=== PATIENT | male | born 2000 | race Caucasian/White ===

== ENCOUNTER 2020-02-20 06:59 | Emergency (ER) | payer BC, SELFPAY ==
--- NOTE | ~2020-02-20 | XR_ITS ---
EXAMINATION: XR chest 2V DATE: 02/20/2020 08:33 INDICATION: Palpitations. TECHNIQUE: Frontal and lateral views of the chest were obtained. COMPARISON: None. FINDINGS: The chest demonstrates clear lungs without pneumonia, pleural effusion, or pneumothorax. Th e heart size is normal. IMPRESSION: 1. No acute cardiopulmonary disease. Reviewed, dictated and finalized at location A.
--- NOTE | 2020-02-20 07:10 | ED.ABDPAIN ---
HPI - Abdominal Pain General Chief Complaint: Arrhythmia/Palpitations Stated Complaint: anxiety, sob, palpitations??? Time Seen by Provider: 02/20/20 07:09 Source: patient and family Mode of arrival: ambulatory Limitations: no limitations History of Present Illness HPI narrative: Patient is a 19-year-old male who presents for evaluation of intermittent palpitations over the past 72 hours. Patient reportedly had felt some palpitations after running outside yesterday that lasted approximately 3 hours before resolving. Patient denied any chest pain, states that it felt difficult to take a deep breath, but currently denies any shortness of breath. No fever, cough, congestion, rhinorrhea or current shortness of breath. Patient states he has been very anxious especially with the end of the semester, final exams recently. Patient has a history of anxiety but does not take any medications for this. He states he gets similar palpitations from caffeine intake which he tries to be very careful about. Patient has had a previous episode of palpitations after high amount of caffeinated beverage intake approximately a week and a half ago, for which he spoke with his parents, but never sought care in the emergency department. Patient otherwise has not followed up with a primary care physician. Patient states that with his palpitations he usually experiences tingling in his hands. Related Data Home Medications Medication Instructions Recorded Confirmed No Home Medications 02/20/20 02/20/20 Allergies Allergy/AdvReac Type Severity Reaction Status Date / Time No Known Allergies Allergy Verified 02/20/20 07:21 Review of Systems Review of Systems: Narrative: CONSTITUTIONAL: Denies fever, chills, or sweats. EYES: Denies visual changes, redness, or discharge. ENT: Denies rhinorrhea, congestion, sore throat, or otalgia. CARDIOVASCULAR: Denies chest pain, reports intermittent palpitations, denies calf edema or calf pain RESPIRATORY: Denies cough or dyspnea. GASTROINTESTINAL: Denies abdominal pain, nausea, vomiting, or diarrhea. GENITOURINARY: Denies dysuria or hematuria. SKIN: Denies rash or itching. MUSCULOSKELETAL: Denies back pain, joint pain, or myalgia. NEUROLOGIC: Denies headache, numbness, or weakness. PSYCHIATRIC: Reports history of anxiety. [facility] Past Medical History Medical History (Updated 02/20/20 @ 10:01 by Marium Cao MD) Anxiety Tic disorder Surgical History Surgical History (Updated 02/20/20 @ 08:13 by Marium Cao MD) No pertinent past surgical history Social History Social History (Updated 02/20/20 @ 08:13 by Marium Cao MD) Smoking status: Never smoker Alcohol intake: never Substance use: never Living arrangements: alone Occupation/Education: student Gender identity (if verbalized by the patient): Male Exam Narrative: Exam Narrative: GENERAL: Awake, alert, conversant HEAD: Normocephalic, atraumatic. EYES: PERRLA and EOMI. ENT: Nares clear, no rhinorrhea or epistaxis. Mucous membranes moist. NECK: Supple. CHEST: No respiratory distress, breathing even and non labored HEART: Regular rate while in room talking with patient, sinus rhythm ABDOMEN:Non distended, non tender EXTREMITIES: Normal range of motion. No edema. SKIN: Warm, dry, no rash. NEURO:No focal deficits. Alert and oriented x3 Course Vital Signs Vital signs: Vital Signs Temperature 36.3 C L 02/20/20 07:13 Pulse Rate 53 L 02/20/20 07:13 Respiratory Rate 16 02/20/20 07:13 Blood Pressure 132/91 H 02/20/20 07:13 Pulse Oximetry 100 02/20/20 07:13 Temperature 36.3 C L 02/20/20 07:13 Pulse Rate 53 L 02/20/20 07:13 Respiratory Rate 16 02/20/20 07:13 Blood Pressure 132/91 H 02/20/20 07:13 Pulse Oximetry 100 02/20/20 07:13 MDM - Abdominal Pain MDM Narrative Medical decision making narrative: Patient presenting for evaluation of intermittent palpitations. At the time of assessment
[2020-02-20 07:13] VITALS: BP 132/91; PULSE 53; RESP 16; TEMP 36.3; O2SAT 100
--- NOTE | 2020-02-20 07:17 | ECG_ITS ---
Measurements Intervals [place] Rate: 64 P: 32 NH: 123 QRS: 7 QRSD: 93 T: 34 QT: 389 QTc: 403 Interpretive Statements SINUS RHYTHM WITH MARKED SINUS ARRHYTHMIA BASELINE ARTIFACT- I, III NORMAL ECG Electronically Signed On 02-20-2020 7:39:57 CDT by Slava Herrera D.O.
[2020-02-20 08:15] VITALS: BP 137/95; PULSE 61; RESP 12; O2SAT 100
[2020-02-20 08:54] LABS: Basophils Percent Auto 0.5 % (0.2-1.2); Eosinophils Absolute Auto 0.1 K/mm3 (0-0.3); Eosinophils Percent Auto 1.2 % (0-4.4); Hematocrit 44.2 % (42.0-52.0); Hemoglobin 15.6 g/dL (14.0-18.0); Immature Granulocyte Absolute 0.03 K/mm3 (0.00-0.031); Immature Granulocyte Percent A 0.4 % (0-0.5); Lymphocytes Absolute Auto 2.42 K/mm3 (0.9-3.2); Lymphocytes Percent Auto 32.8 % (18.3-44.2); Mean Corpuscular HGB Conc 35.3 g/dl (32-36); Mean Corpuscular Hemoglobin 30.9 pg (26-34); Mean Corpuscular Volume 87.5 fl (80-100); Monocytes Absolute Auto 0.8 K/mm3 (0.1-0.6); Monocytes Percent Auto 11.4 % (2.6-8.5); Neutrophils Percent Auto 53.7 % (45.5-73.1); Platelet Count Result 251 k/mm3 (150-375); Red Blood Count 5.05 M/mm3 (4.6-6.20); Red Cell Distribution Width 12.4 % (11.5-14.5); White Blood Count 7.4 K/mm3 (4.5-10.0)
[2020-02-20 09:00] VITALS: BP 142/89; PULSE 55; RESP 14; O2SAT 100
[2020-02-20 09:05] LABS: Blood Urea Nitrogen 10 mg/dL (9-20); Calcium 9.6 mg/dL (8.4-10.2); Carbon Dioxide 28 mmol/L (22-30); Chloride 100 mmol/L (98-107); Estimated CRCL calculation 119 ml/min; Estimated Glomerular Filt Rate > 60; Glucose 95 mg/dL (75-110); Potassium 4.1 mmol/L (3.4-5.0); Sodium 137 mmol/L (137-145)
[2020-02-20 09:17] LABS: Troponin I < 0.012 ng/mL (0.000-0.034)
[2020-02-20 10:00] VITALS: BP 138/82; PULSE 58; RESP 16; O2SAT 100
[2020-02-20 10:45] VITALS: BP 146/80; PULSE 64; RESP 16; O2SAT 100
--- NOTE | 2020-02-25 15:34 | P.PCNHOL_ITS ---
Holter/Event Monitor Holter/Event Monitor Date of procedure: 02/20/20 Procedure Type: 48 hour holter monitor Indications: Palpitations Conclusion: 1. 48 hour holter monitor on 02/20/20. 2. Underlying rhythm is sinus rhythm. HR range 35-160 bpm; average HR 66 bpm. 3. There are 3 premature supraventricular complexes. No supraventricular tachycardia. 4. There are 12 premature ventricular complexes. No ventricular tachycardia. 5. No sinoatrial or atrioventricular blocks. No significant pauses greater than 2 seconds. 6. Patient reports symptoms of palpitations, feet feels cold, sharp pain in ab domen which demonstrate sinus rhythm, HR range 62-91 bpm.
== END 2020-02-20 10:45 | disposition home or self-care (01) ==
PROVIDERS: Emergency Provider Emergency Medicine
DX: R00.2 Palpitations (principal); I49.3 Ventricular premature depolarization
CPT/HCPCS: 36415; 71046; 80048; 84484; 85025; 93005; 93225; 93226; 99284

== ENCOUNTER 2020-02-26 12:11 | Outpatient (CLI) | payer BC, SELFPAY ==
--- NOTE | 2020-02-26 12:26 | ECHO_ITS ---
Patient Info Name: Jalil Alvarado Age: 19 years : 2000 Gender: Male Ht: 67 in Wt: 150 lbs BSA: 1.80 m2 HR: 88 bpm BP: 122 / 68 mmHg Heart Rhythm: Sinus Rhythm Technical Quality: Excellent Exam Date: 02/26/2020 12:35 PM Exam Location: [facility] [place] Patient Status: Outpatient Admit Date: 02/26/2020 Staff Ordering Physician: Neal Heredia DO Developer Relations Manager: Linda Tavares RDCS Attending Provider: Neal Heredia DO Referring Physician: Giovanna GONZALEZ; Exam Type: CA echo doppler color flow Study Info Indications R00.2 - Palpitations Complete two-dimensional, color flow and Doppler transthoracic echocardiogram is performed. Strain analysis performed. History/Risk Factors Hypertension: No Dyslipidemia: No Congenital Heart Disease (CHD): No Peripheral Arterial Disease (PAD): No Myocardial Infarction (MO): No Chronic Lung Disease: No Obesity: No Renal Disease: No Coronary Artery Disease (CAD) No Congestive Heart Failure (CHF): No Cardiomyopathy/LV Systolic Dysfunction: No Diabetes Mellitus: No COPD: No Tobacco Use: Never Cerebrovascular Disease: No Family History: Diabetes Mellitus, Coronary Artery Disease Deep Vein Thrombosis (DVT): None Dialysis: None Frailty Scale (CSHA): 1: Very Fit Cardiac Arrest: No Prior Interventions Pacemaker: No PCI: No CABG: No Valve Surgery: No ICD: No PV Intervention: None Heart Transplant: No Summary 1. Left ventricular chamber dimension is normal. 2. Left ventricular systolic function is normal, estimated at 60-65%. 3. The left ventricular diastolic function is normal. 4. E/e' 8 is minimally elevated. 5. Global longitudinal strain is normal at -20.5%. 6. There is trace mitral valve regurgitation. Left Ventricle E/e' 8 is minimally elevated. Global longitudinal strain is normal at -20.5%. Left ventricular chamber dimension is normal. Left ventricular systolic function is normal, estimated at 60-65%. The left ventricular diastolic function is normal. Right Ventricle Right ventricular chamber dimension is normal. Right ventricular systolic function is normal. Left Atria Left atrial chamber dimension is normal. Right Atria Right atrial chamber dimension is normal. Aortic Valve The aortic valve is trileaflet. There is no aortic valve stenosis. There is no aortic valve regurgitation. Pulmonic Valve There is no pulmonic regurgitation. Mitral Valve There is no mitral valve stenosis. There is trace mitral valve regurgitation. Tricuspid Valve There is no tricuspid valve regurgitation. Pericardium/Pleural There is no pericardial effusion. Inferior Vena Cava Normal inferior vena cava with >50% collapse upon inspiration consistent with normal right atrial pressure, 5 mmHg. Aorta The aortic root size at the sinus of Valsalva is normal. Left Ventricular Outflow Tract Name Value Normal LVOT 2D LVOT Diameter 2.2 cm LVOT Doppler LVOT Peak Velocity 105 cm/s
== END 2020-02-26 12:12 | disposition home or self-care (01) ==
PROVIDERS: PCP Family Medicine; Visit Provider Family Medicine
DX: R00.2 Palpitations (principal)
CPT/HCPCS: 93306

== ENCOUNTER 2022-02-23 14:54 | Outpatient (CLI) | payer BC, SELFPAY ==
[2022-02-23 15:05] LABS: Hematocrit 45.8 % (40.0-54.0); Hemoglobin 16.3 g/dL (14.0-18.0); Mean Corpuscular HGB Conc 35.6 g/dL (32.0-36.0); Mean Corpuscular Hemoglobin 31.8 pg (27.0-31.0); Mean Corpuscular Volume 89.3 fL (78.0-102.0); Mean Platelet Volume 9.6 fl (8.7-11.0); Platelet Count Result 275 K/mm3 (150-420); Red Blood Count 5.13 M/mm3 (4.70-6.10); Red Cell Distribution Width 11.7 % (11.6-14.4); White Blood Count 6.8 K/mm3 (4.8-10.8)
[2022-02-23 15:33] LABS: Alanine Aminotransferase 47 U/L (16-63); Albumin Level 4.3 g/dL (3.4-5.0); Alkaline Phosphatase 39 U/L (46-116); Anion Gap 10 mmol/L (8-16); Aspartate Amino Transferase 24 U/L (15-37); Bilirubin,Total 0.6 mg/dL (0.00-1.00); Blood Urea Nitrogen 9 mg/dL (7-18); Calcium 9.5 mg/dL (8.5-10.1); Carbon Dioxide 28 mmol/L (21-32); Chloride 100 mmol/L (98-108); Estimated Glomerular Filt Rate > 60; Glucose 97 mg/dL (70-99); Osmolality Calculated 284 mOsm/kg (285-295); Potassium 4.2 mmol/L (3.5-5.1); Sodium 138 mmol/L (136-145); Total Protein 8.1 g/dL (6.4-8.2)
== END 2022-02-23 14:55 | disposition home or self-care (01) ==
LOC: CHSLAB 14:55
PROVIDERS: PCP Family Medicine; Visit Provider Family Medicine
DX: I10 Essential (primary) hypertension (principal)
CPT/HCPCS: 36415; 80053; 85027

== ENCOUNTER 2024-09-16 16:59 | Emergency (ER) | payer BC, SELFPAY ==
--- OUTSIDE RECORDS SUMMARY | 2024-09-16 17:01 | XMS_ITS | Clinical Summary ---
Author Organization [facility] Address [facility]. [place], [place] [id number] [place] [id number] Care Team Providers Care Roll Setter Name Role Phone Unavailable Primary Care Provider Unavailabl e Social History Tobacco Use Types Packs/Day Years Used Date Smoking Tobacco: Never Assessed Sex and Gender Information Value Date Recorded Sex Assigned at Not on file Legal Sex Male 5:47 PM SOFTWARE DEVELOPER CONSULTANT Gender Identity Not on file Sexual Orientation Not on file Plan of Treatment Health Maintenance Due Date Last Done Comments Annual Physical 2001 HPV Vaccines (1 - Male 3-dos e series) 2013 Hepatitis C 2016 DTaP, Tdap and Td Vaccines ( 1 - Tdap) 2017 Hepatitis B Vaccines (1 of 3 - 19+ 3-dose series) 2017 COVID-19 Vaccine ( - 2023-2 5 season) 2024 Influenza Adult (#1) 2024 Meningococcal B Vaccine Aged Out No l onger eligible based on patient's age to complete this topic Meningococcal Vaccine Aged Out No kassy alexsander eligible based on patient's age to complete this topic Pneumococcal Vaccine: Pediat rics (0 to 5 Years) and At-Risk Patients (6 to 64 Years) Aged Out No longer eligible b ased on patient's age to complete this topic RSV Immunizations Under 20 Months Aged Out No longer eligible based on patient's age to complete this topic
--- OUTSIDE RECORDS SUMMARY | 2024-09-16 17:01 | XMS_ITS | Referral Summary ---
Author Organization [facility] Address [address] [place] [address] Care Team Providers Care Religious Studies Professor Name Role Phone Unavailable Primary Care Provider Unavailabl e Source Comments [facility],non-owned Affiliates and Associated Physician Practices is amultiple site organization consisting of ambulatory clinics and hospital sitesin [place], [place], [place] and [place]. This disclosure is being madepursuant to the Care Everywhere program and may not contain all information available regarding this patient. Last updated 18.[facility] Allergies No known active allergies Medications Be aware that medications may not be up to date on this document. Always verify current medications with the patient. No known medications Active Problems No known active problems Immunizations Name Administration Dates Next Due DTAP HIB IPV 02/18/1999 DTaP VACCINE IM (6wk-6yrs) 01/27/2004,,06/22/1999,04/20/1999, 02/18/1999 HEP A PEDS 2 DOSE 07/05/2010,12/31/2009 HEP B VACCINE, PED/ADOL 09/22/1999,01/19/1999, HIB BOOSTER 06/26/2000,06/22/1999,04/20/1999 ,02/18/1999 MENINGOCOCCAL CONJUGATE (MCV4P) 01/04/2016,04/26 MMR 03/08/2004,06/07/2002 POLIO IPV 04/02/2004,04/20/1999,02/18/1999 POLIO OPV 02/26/2002 PPD 01/27/2004 ROTAVIRUS, PENTAVALENT 02/18/1999 TDAP (7yrs+) 12/31/2009 VARICELLA 02/25/2013,04/24/2003 Social History Tobacco Use Types Packs/Day Years Used Date Smoking Tobacco: Never Smokeless Tobacco: Never Sex and Gender Information Value Date Recorded Sex Assigned at Not on file Gender Identity Not on file Sexual Orientation Not on file Last Filed Vital Signs Vital Sign Reading Time Taken Comments Blood Pressure 126/86 10/06/2016 3:38 PM DATA MIGRATION CONSULTANT Pulse 84 10/06/2016 3:38 PM DATA MIGRATION CONSULTANT Temperature 37 ??C (98.6 ??F) 12/29/2016 10:52 AM CDT Respiratory Rate - - Oxygen Saturation - - Inhaled Oxygen Concentration - - Weight 71.5 kg (157 lb 9.6 oz) 12/29/2016 10:52 AM CDT Height 163.8 cm (5' 4.5 ) 10/06/2016 3:38 PM DATA MIGRATION CONSULTANT Body Mass Index - - Plan of Treatment Not on file Goals Goal Patient Goal Type Associated Problems Recent Progress Patient-Stated? Author Use safety retraint in car Lifestyle On track( 017 3:42 PM DATA MIGRATION CONSULTANT) Sarah Klein, RN RAMANDEEP WASHBURN Personal/Family 2000 [place] [address] [employer] [address] [place] [id number]
--- OUTSIDE RECORDS SUMMARY | 2024-09-16 17:01 | XMS_ITS | Patient Health Summary ---
Author Organization [facility] Address [address] [place] [address] Care Team Providers Care State Federal Relations Deputy Director Name Role Phone Unavailable Primary Care Provider Unavailabl e Note from [facility],non-owned Affiliates and Associated Physician Practices is amultiple site organization consisting of ambulatory clinics and hospital sitesin [place], [place], [place] and [place]. This disclosure is being madepursuant to the Care Everywhere program and may not contain all information available regarding this patient. Last updated 18.[facility] Allergies No known active allergies Medications Be aware that medications may not be up to date on this document. Always verify current medications with the patient. No known medications Active Problems No known active problems Immunizations * DTAP HIB IPV(Given 02/18/1999) * DTaP VACCINE IM (6wk-6yrs)(Given 01/27/2004, 01/20/2003, 06/22/1999, 04/20/1999, 02/18/1999) * HEP A PEDS 2 DOSE(Given 07/05/2010, 12/31/2009) * HEP B VACCINE, PED/ADOL(Given 09/22/1999, 01/19/1999, 1998) * HIB BOOSTER(Given 06/26/2000, 06/22/1999, 04/20/1999, 02/18/1999) * MENINGOCOCCAL CONJUGATE (MCV4P)(Given 01/04/2016, 04/26/2012) * MMR(Given 03/08/2004, 06/07/2002) * POLIO IPV(Given 04/02/2004, 04/20/1999, 02/18/1999) * POLIO OPV(Given 02/26/2002) * PPD(Given 01/27/2004) * ROTAVIRUS, PENTAVALENT(Given 02/18/1999) * TDAP (7yrs+)(Given 12/31/2009) * VARICELLA(Given 02/25/2013, 04/24/2003) Social History Tobacco Use Types Packs/Day Years Used Date Smoking Tobacco: Never Smokeless Tobacco: Never Sex and Gender Information Value Date Recorded Sex Assigned at Not on file Gender Identity Not on file Sexual Orientation Not on file Last Filed Vital Signs Vital Sign Reading Time Taken Comments Blood Pressure 126/86 10/06/2016 3:38 PM RESOURCE ECONOMIST Pulse 84 10/06/2016 3:38 PM RESOURCE ECONOMIST Temperature 37 ??C (98.6 ??F) 12/29/2016 10:52 AM CDT Respiratory Rate - - Oxygen Saturation - - Inhaled Oxygen Concentration - - Weight 71.5 kg (157 lb 9.6 oz) 12/29/2016 10:52 AM CDT Height 163.8 cm (5' 4.5 ) 10/06/2016 3:38 PM RESOURCE ECONOMIST Body Mass Index - - Procedures * US SOFT TISSUE HEAD NECK(Performed 11/18/2016) Performed for Mass in neck * STREP A SCREEN - POINT OF CARE (AMB)(Performed 02/21/2014) Performed for Pharyngitis, acute, Fever presenting with conditions classified elsewhere * CULTURE AEROBIC+GRAM STAIN(Performed 02/21/2014) Performed for Pharyngitis, acute * CT SINUS WO CONTRAST(Performed 11/20/2013) * URINALYSIS - POINT OF CARE(Performed 12/02/2011) Performed for Dysuria * STREP A SCREEN - POINT OF CARE (AMB)(Performed 01/17/2011) Performed for Streptococcal sore throat * URINALYSIS - POINT OF CARE(Performed 12/31/2009) Performed for Routine or Child Health Check Results * US HEAD NECK TISSUES B - SCAN REAL TIME (11/18/2016) Anatomical Region Laterality Modality Head Ultrasound Nabil Churchill DO US ORDERABLES * STREP A SCREEN - POINT OF CARE (AMB) (02/21/2014 4:45 PM CDT) Only the most recent of2 resultswithin the time period is included. Pathologist [facility] Strep A Rapid POCT Negative Negative Strep A Internal Control NEGATIVE - POSITIVE Throat swab (specimen) ENTIRE THROAT (SURFACE REGION OF NECK) / Unknown 02/21/2014 4:45 PM CDT Linda Zhang MD LAB - POINT OF CARE ORDERABLES * CULTURE ROUTINE (02/21/2014 4:44 PM CDT) [facility] Aerobic Bacterial Culture Final report [facility] ACCOUNT BILL Result 1 [facility] ACCOUNT BILL Comment:Routine respiratory rhiannon ENTIRE PHARYNX / Unknown 02/21/2014 4:44 PM CDT 02/21/2014 9:10 PM CDT Narrative Resulting Agency Comment [facility] [address] ??[facility] [phone] Linda Zhang MD LAB - MICROBIOLOGY O RDERABLES [facility] ACCOUNT BILL * CT SINUS NON IV CONTRAST (11/20/2013) Anatomical Region Laterality Modality Head Other Keyon Cui MD CT ORDERABLES * URINALYSIS - POINT OF CARE (12/02/2011 3:50 PM CDT) Only the most recent of2 resultswithin the time period is included. Pathologist [facility] Clarity UA POCT clear Color UA POCT dark yellow Leukocyte UA neg Negative Nitrite UA POCT neg Negative Urobilinogen UA POCT neg 0.1 - 1.0 EU/dL Protein UA POCT neg Negative pH UA 5 5.0 - 8.0 pH units Blood UA neg Negtive Specific [place] UA POCT 1.020 1.002 - 1.030 Ketone UA neg Negative Bilirubin UA POCT neg Negative Glucose UA neg Negative Urine specimen (specimen) URINE / Unknown Linda Zhang MD LAB - POINT OF CARE ORDERABLES
--- OUTSIDE RECORDS SUMMARY | 2024-09-16 17:01 | XMS_ITS | Clinical Summary ---
Author Organization [facility] Address [address] [place] [address] Care Team Providers Care Rehabilitation Worker Name Role Phone Unavailable Primary Care Provider Unavailabl e Source Comments [facility],non-owned Affiliates and Associated Physician Practices is amultiple site organization consisting of ambulatory clinics and hospital sitesin [place], [place], [place]. This disclosure is being madepursuant to the Care Everywhere program and may not contain all information available regarding this patient. Last updated 18.[facility] Allergies No known active allergies Medications Be [...] Comments Blood Pressure 126/86 10/06/2016 3:38 PM FAGOT HEATER Pulse 84 10/06/2016 3:38 PM FAGOT HEATER Temperature 37 ??C (98.6 ??F) 12/29/2016 10:52 AM CDT Respiratory Rate - - Oxygen Saturation - - Inhaled Oxygen Concentration - - Weight 71.5 kg (157 lb 9.6 oz) 12/29/2016 10:52 AM CDT Height 163.8 cm (5' 4.5 ) 10/06/2016 3:38 PM FAGOT HEATER Body Mass Index - - Plan of Treatment Health Maintenance Due Date Last Done Comments HIV SCREENING 2013 HPV VACCINE (1 - Male 3-dose series) 2013 HEPATITIS C SCREENING 12/12/2016 DTAP/TDAP/TD VACCINES (6 - Td or Tdap) 01/01/2020 12/31/2009, 01/27/2004, 01/20/2003, Additional history exists COVID-19 VACCINE (2023- season) 2024 INFLUENZA VACCINE (#1) 2024 DEPRESSION SCREENING 08/14/2024 ZOSTER VACCINE (1 of 2) 2048 HEPATITIS B VACCINE Completed 09/22/1999, 01/19/1999, 1998 HIB VACCINE Completed 06/26/2000, 04/1999, 04/20/1999, Additional history exists MENINGOCOCCAL VACCINE Completed 01/04/2016, 012 MENINGOCOCCAL (Group B) VACCINE Aged Out No longer eligible based on patient's age to complete this topic PNEUMOCOCCAL VACCINE Aged Out No long er eligible based on patient's age to complete this topic Goals Goal Patient Goal Type Associated Problems Recent Progress Patient-Stated? Author Use safety retraint in car Lifestyle On track( 017 3:42 PM FAGOT HEATER) No Sarah Simeon RN RAMANDEEP WASHBURN Personal/Family 2000 [place] [address] [place] [id number]
[2024-09-16 17:06] VITALS: BP 129/86; PULSE 70; RESP 16; TEMP 36.4; O2SAT 99
--- NOTE | 2024-09-16 17:22 | ED_ITS ---
HPI - General Adult General Chief complaint: Skin/Abscess/Foreign Body Stated complaint: Body Rash History of Present Illness HPI narrative: Jalil Alvarado Is a 23-year-old male who presents today with complaints of having a itchy rash to his arms legs and trunk for about 2 weeks he states he did have eczema as a child but does not think it has had any issues recently. He also states that he is on lisinopril did note this was an allergic reaction. Related Data Allergies Allergy/AdvReac Type Severity Reaction Status Date / Time No Known Allergies Allergy Verified 09/16/24 17:01 Review of Systems Review of Systems: All systems reviewed & are unremarkable except as noted in HPI and below PMFSH Past Medical History Medical History Elevated systolic blood pressure reading without diagnosis of hypertension Anxiety Tic disorder Surgical History Surgical History No pertinent past surgical history Social History Social History Smoking status: Never smoker Alcohol intake: never Substance use: never Lack of Transportation: No Lack of Food: Never True Current Housing: I Have Housing Concerned About Future Housing: No Difficulty Paying Gas/Electric Bills: No Difficulty Paying for Meds: No Currently Unemployed: No Education: Bachelor's Degree Living arrangements: alone Occupation/Education: student Gender identity (if verbalized by the patient): Male Exam Narrative: GENERAL: Well-appearing, well-nourished, and in no acute distress. HEAD: Normocephalic, atraumatic. EYES: PERRLA and EOMI. ENT: Nares clear, no rhinorrhea or epistaxis. Mucous membranes moist. Oropharynx without tonsillar hypertrophy exudate or other lesions. Bilateral TMs pearly dee nonbulging NECK: Supple. No adenopathy or masses. No carotid bruits or JVD CHEST: Clear to auscultation. No respiratory distress. No wheezes rales or rhonchi HEART: Regular rate and rhythm. No murmur heard. Normal peripheral pulses. ABDOMEN: Soft, nontender, nondistended, normal active bowel sounds. EXTREMITIES: Normal range of motion. No edema. SKIN: Small red raised papules to upper extremities that are itchy appears similar to eczema NEURO: No focal deficits. Alert and oriented x3. PSYCH: Normal mood and affect. Course Course Level of Care: Express Care Visit Vital Signs Vital signs: Vital Signs Temperature 36.4 C 09/16/24 17:06 Pulse Rate 70 09/16/24 17:06 Respiratory Rate 16 09/16/24 17:06 Blood Pressure 129/86 09/16/24 17:06 Pulse Oximetry 99 09/16/24 17:06 Oxygen Delivery Room Air 09/16/24 17:06 Temperature 36.4 C 09/16/24 17:06 Pulse Rate 70 09/16/24 17:06 Respiratory Rate 16 09/16/24 17:06 Blood Pressure 129/86 09/16/24 17:06 Pulse Oximetry 99 09/16/24 17:06 Oxygen Delivery Room Air 09/16/24 17:06 Medical Decision Making MDM Narrative Medical decision making narrative: 23 y/o here with rash that he states started about 2 weeks ago and feels itchy. He wanted to know if it is an allergic reaction to his lisinopril. Small red raised papules to upper extremities that are itchy appears similar to eczema lung sounds clear all oropharynx is pink intact no edema noted Will treat him with Zyrtec daily Triamcinolone topically and steroid pack Let him know it is difficult to tell if this is related to his lisinopril for this is his eczema, I encouraged him to consult with his PCP regarding his lisinopril We also talked about the angioedema symptoms of reaction to arsen inhibitions. Patient is agreeable to plan Medical Records Medical records reviewed: Yes I reviewed the external patient's medical records. Vital Signs Vital Signs: Vital Signs Temperature 36.4 C 09/16/24 17:06 Pulse Rate 70 09/16/24 17:06 Respiratory Rate 16 09/16/24 17:06 Blood Pressure 129/86 09/16/24 17:06 Pulse Oximetry 99 09/16/24 17:06 Oxygen Delivery Room Air 09/16/24 17:06 Temperature 36.4 C 09/16/24 17:06 Pulse Rate 70 09/16/24 17:06 Respiratory Rate 16 09/16/24 17:06 Blood Pressure 129/86 09/16/24 17:06 Pulse Oximetry 99 09/16/24 17:06 Oxygen Delivery Room Air 09/16/24 17:06 Vitals reviewed by me Discharge Plan Discharge Clinical Impression: Rash Patient Disposition: Home, Self-Care Condition: Stable Instructions: Antibiotic Form Additional Instructions: it is difficult to distinguish whether this is related to Your lisinopril or eczema or a reaction to something else. add consult with your primary care doctor regarding your lisinopril your blood pressure today is day you could consider holding your next dose until he can talk to your primary care doctor. Start taking the Zyrtec once daily to help with the itching, start taking the steroid pack tomorrow to help decrease the inflammation and reaction. You may start using the triamcinolone topical cream twice daily to the affected areas awaiting your face and genitals follow-up with your primary care doctor in the next 3-5 days to ensure this is improved if you develop shortness of breath, throat swelling, lip swelling, tongue swelling or any signs of an acute allergic reaction please go straight to the emergency department Patient Language: Belarusian Prescriptions: New cetirizine [Zyrtec] 10 mg tablet 10 mg PO DAILY PRN (Reason: allergy symptoms) Qty: 30 0RF triamcinolone acetonide 0.1 % cream 1 applic topical BID Qty: 453.6 0RF methylprednisolone 4 mg tablets,dose pack See Rx Instructions .ROUTE .COMPLEX Qty: 21 0RF Rx Instructions: for 6 days No Action lisinopril 20 mg tablet See Rx Instructions .ROUTE .COMPLEX Qty: 90 3RF Dose Instruction: TAKE 1 TABLET BY MOUTH DAILY Rx Instructions: TAKE 1 TABLET BY MOUTH DAILY Follow-up/Referrals: PHYSICIAN,MEDICAL SECRETARY RECEPTIONIST [Primary Care Provider] - Time of Disposition: 17:29
== END 2024-09-16 17:34 | disposition home or self-care (01) ==
PROVIDERS: Emergency Provider Nurse Practitioner Family
DX: R21 Rash and other nonspecific skin eruption (principal)
CPT/HCPCS: 99213; G0463

== ENCOUNTER 2025-02-03 16:54 | Emergency (ER) | payer BC, SELFPAY ==
[2025-02-03 17:03] VITALS: BP 143/70; PULSE 68; RESP 16; TEMP 36.5; O2SAT 100
--- NOTE | 2025-02-03 17:30 | ED.URI ---
HPI - URI/Sore Throat General Chief Complaint: Upper Respiratory Infection Stated Complaint: throat issues Time Seen by Provider: 02/03/25 17:17 Source: patient and RN notes reviewed Mode of arrival: ambulatory Limitations: no limitations History of Present Illness HPI Narrative: Patient presents today with a one-week history of excessive postnasal drainage, liquid pooling in his throat, increased clearing of the throat, feeling that his throat is closing up. Denies shortness of breath, difficulty swallowing, pain, cough, congestion. States his symptoms improved when he was out jogging and exercising and worsen when he is at home sitting still and lying flat. He takes daily Zyrtec and denies relief. Related Data Allergies Allergy/AdvReac Type Severity Reaction Status Date / Time No Known Allergies Allergy Verified 02/03/25 16:58 Review of Systems Review of Systems: CONSTITUTIONAL: Denies body aches, fever, chills, or sweats. EYES: Denies visual changes, redness, or discharge. ENT: Denies rhinorrhea, congestion, sore throat, or otalgia. + postnasal drip CARDIOVASCULAR: Denies chest pain, palpitations, or edema. RESPIRATORY: Denies cough or dyspnea. GASTROINTESTINAL: Denies abdominal pain, nausea, vomiting, or diarrhea. GENITOURINARY: Denies dysuria or hematuria. SKIN: Denies rash, itching, or wounds. MUSCULOSKELETAL: Denies back pain, joint pain, or myalgia. NEUROLOGIC: Denies headache, numbness, tingling, or weakness. PSYCH: Denies depression or anxiety. [facility] Past Medical History Medical History Elevated systolic blood pressure reading without diagnosis of hypertension Anxiety Tic disorder Surgical History Surgical History No pertinent past surgical history Social History Social History Smoking status: Never smoker Alcohol intake: never Substance use: never Lack of Transportation: No Lack of Food: Never True Current Housing: I Have Housing Concerned About Future Housing: No Difficulty Paying Gas/Electric Bills: No Difficulty Paying for Meds: No Currently Unemployed: No Education: Bachelor's Degree Living arrangements: alone Occupation/Education: student Gender identity (if verbalized by the patient): Male Comments At time of signature, I have reviewed and agree with nursing past medical, surgical, social and family history unless otherwise noted. Please see nursing chart for further information. There is no relevant family history pertinent to the presenting complaint Exam Narrative: GENERAL: Well-appearing, well-nourished, and in no acute distress. HEAD: Normocephalic, atraumatic. EYES: EOMI. No redness or drainage. Conjunctivae normal. ENT: Mucous membranes pink and moist. Nares clear. No rhinorrhea. TMs normal bilaterally. Throat normal without swelling, erythema, exudate. Uvula midline. Voice is normal. NECK: Normal AROM. Supple. No lymphadenopathy. Neck is nontender. CHEST: No respiratory distress. Clear to auscultation. HEART: Regular rate and rhythm. No murmur appreciated. EXTREMITIES: Normal range of motion. No edema. SKIN: Warm, dry, no rash. Capillary refill normal. Normal skin turgor. NEURO: No focal deficits. Alert and oriented x3. Gait steady. PSYCH: Normal affect. No signs of depression or anxiety. Course Course Level of Care: Express Care Visit Vital Signs Vital signs: Vital Signs Temperature 97.7 F 02/03/25 17:03 Pulse Rate 68 02/03/25 17:03 Respiratory Rate 16 02/03/25 17:03 Blood Pressure 143/70 H 02/03/25 17:03 Pulse Oximetry 100 02/03/25 17:03 Oxygen Delivery Room Air 02/03/25 17:03 Temperature 97.7 F 02/03/25 17:03 Pulse Rate 68 02/03/25 17:03 Respiratory Rate 16 02/03/25 17:03 Blood Pressure 143/70 H 02/03/25 17:03 Pulse Oximetry 100 02/03/25 17:03 Oxygen Delivery Room Air 02/03/25 17:03 Reviewed MDM - URI/Sore Throat MDM Narrative Medical decision making narrative: Patient's symptoms are likely due to excessive postnasal drainage. Recommend continuing Zyrtec, adding Flonase and prescription for prednisone. Anticipatory guidance and ED precautions given. Differential Diagnosis Differential diagnosis: Likely upper respiratory infection, otitis media, sinusitis, viral infection and other (Allergies, postnasal drainage) Critical Care Time Critical Care Time Critical Care Time: No Discharge Plan Discharge Clinical Impression: Throat irritation Patient Disposition: Home Condition: Stable Additional Instructions: Please take the prednisone as directed. Continue the Zyrtec and consider using a nasal steroid such as Flonase. If after your finished with the prednisone your symptoms persist, please make an appointment and follow-up with your primary for further evaluation and treatment. If you develop any difficulty swallowing or shortness of breath, please go to the ER immediately. Your blood pressure was elevated above 120/80 today at Urgent Care. This puts you above the threshold for follow up. Please schedule a followup visit with your personal physician as soon as possible, for further evaluation and treatment. Even blood pressure exceeding 120/80 may indicate pre-hypertension. Patient Language: Icelandic Prescriptions: New prednisone 20 mg tablet 40 mg PO DAILY 5 Days Qty: 10 0RF No Action cetirizine [Zyrtec] 10 mg tablet 10 mg PO DAILY PRN (Reason: allergy symptoms) Qty: 30 0RF lisinopril 20 mg tablet 20 mg PO DAILY Qty: 30 0RF Rx Instructions: Patient needs appointment prior to further refills Follow-up/Referrals: Neal Heredia DO [Primary Care Provider] - Time of Disposition: 17:31
== END 2025-02-03 17:32 | disposition home or self-care (01) ==
PROVIDERS: Emergency Provider Nurse Practitioner; PCP Family Medicine
DX: R07.0 Pain in throat (principal)
CPT/HCPCS: 99213; G0463